=== PATIENT | male | born 1990 | race American Indian/Alaskan Native ===

== ENCOUNTER 2024-09-16 13:35 | Inpatient (IN) | payer OTHER ==
[2024-09-16] MEDS ORDERED: Sodium Chloride 0.9% 10 ML Syringe FLUSH PRN (14:09)
[2024-09-16 14:14] LABS: BASOPHILS ABSOLUTE AUTO 0.0 K/mm3 (0.0-0.2); BASOPHILS PERCENT AUTO 0.2 % (0.0-1.0); EOSINOPHILS ABSOLUTE AUTO 0.0 K/mm3 (0.0-0.4); EOSINOPHILS PERCENT AUTO 0.1 % (0.0-6.0); IMMATURE GRAN ABSOLUTE AUTO 0.03 K/mm3 (0.00-0.05); IMMATURE GRAN PERCENT AUTO 0.2 % (0.0-0.4); LYMPHOCYTES ABSOLUTE AUTO 0.9 K/mm3 (1.0-4.8); LYMPHOCYTES PERCENT AUTO 7.3 % (24.0-44.0); MEAN PLATELET VOLUME 10.0 fl (9.4-12.4); MONOCYTES ABSOLUTE AUTO 0.5 K/mm3 (0.0-0.8); MONOCYTES PERCENT AUTO 4.3 % (0.0-8.0); NEUTROPHILS ABSOLUTE AUTO 11.0 K/mm3 (1.8-7.7); NEUTROPHILS PERCENT AUTO 87.9 % (41.0-71.0); NRBC ABSOLUTE 0.00 (0.00-0.02); NRBC PERCENT 0.0 % (0.0-0.2); PLATELET COUNT,PLT 260 K/mm3 (150-400); RED BLOOD CELL COUNT 5.72 M/mm3 (4.52-5.90); WHITE BLOOD CELL COUNT,WBC 12.46 K/mm3 (3.9-11.3)
[2024-09-16] MEDS: Iopamidol 612 MG/ML 100 ML Bottle IVPUSH ONE (14:19)
[2024-09-16] MEDS: Sodium Chloride 0.9% 10 ML Syringe FLUSH PRN (14:19)
[2024-09-16 14:26] LABS: A/G RATIO 0.9 (1-2); ALANINE AMINOTRANSFERASE,ALT 45.0 U/L (16-63); ASPARTATE AMNIOTRANSFERASE,AST 28.0 U/L (15-37); BILIRUBIN TOTAL 2.8 mg/dL (0.2-1.0); BLOOD UREA NITROGEN,BUN 18.0 mg/dL (7-18); CARBON DIOXIDE,CO2 20.0 mEq/L (21-32); CHLORIDE,CL 93.0 mEq/L (98-107); CREATININE 0.9 mg/dL (0.7-1.3); EST CRCL DRUG DOSING (CG) 121.67 mL/min; ESTIMATED GFR 116.0 mL/min (>60); GLUCOSE RANDOM 266.0 mg/dL (70-99); POTASSIUM,K 3.2 mEq/L (3.5-5.1); PROTEIN TOTAL,TP 8.2 g/dl (6.4-8.2); SODIUM,NA 133.0 mEq/L (136-145)
[2024-09-16] MEDS: Ondansetron 4 MG/2 ML SDV IVPUSH ONE ×2 (14:42→16:00)
[2024-09-16] MEDS: Dicyclomine 20 MG/2 ML SDV IM ONE (16:52)
[2024-09-16] MEDS: Insulin Glargine,Human Rec. Analog 100 Units/ML 3 ML Pen SUBCUT STA (16:54)
[2024-09-16] MEDS: Insulin Lispro 100 Unit/ML 3 ML KwikPen SUBCUT SCH (17:47)
[2024-09-16] MEDS ORDERED: hydrALAZINE 20 MG/ML SDV IVPUSH PRN (18:01)
[2024-09-16 18:30] LABS: APPEARANCE,URINE CLEAR (Clear); GLUCOSE,URINE 2+ (Negative); OCCULT BLOOD,URINE TRACE-INTACT (Negative)
[2024-09-16 18:53] LABS: BUPRENORPHINE SCREEN,URINE NEGATIVE (CUTOFF=10); EPITHELIAL CELLS,URINE 0-5 /hpf (0-5); METHADONE SCREEN, URINE NEGATIVE (CUT0FF=200); METHAMPHETAMINES SCREEN, URINE NEGATIVE (CUTOFF=500); OXYCODONE SCREEN,URINE NEGATIVE (CUT0FF=100); THC SCREEN,URINE 20 NG/ML PRESUMPTIVE POSITIVE (CUTOFF=50)
[2024-09-16 18:55] LABS: AMPHETAMINES SCREEN, URINE NEGATIVE (CUTOFF=500)
[2024-09-16] MEDS: Ondansetron 4 MG/2 ML SDV IVPUSH PRN (22:29)
[2024-09-17 06:27] LABS: MEAN PLATELET VOLUME 9.8 fl (9.4-12.4); NRBC ABSOLUTE 0.00 (0.00-0.02); NRBC PERCENT 0.0 % (0.0-0.2); PLATELET COUNT,PLT 199 K/mm3 (150-400); RED BLOOD CELL COUNT 5.13 M/mm3 (4.52-5.90); WHITE BLOOD CELL COUNT,WBC 10.54 K/mm3 (3.9-11.3)
[2024-09-17 06:35] LABS: A/G RATIO 0.9 (1-2); ALANINE AMINOTRANSFERASE,ALT 36.0 U/L (16-63); ASPARTATE AMNIOTRANSFERASE,AST 24.0 U/L (15-37); BILIRUBIN TOTAL 1.8 mg/dL (0.2-1.0); BLOOD UREA NITROGEN,BUN 10.0 mg/dL (7-18); CARBON DIOXIDE,CO2 27.0 mEq/L (21-32); CHLORIDE,CL 96.0 mEq/L (98-107); CREATININE 0.6 mg/dL (0.7-1.3); EST CRCL DRUG DOSING (CG) 182.5 mL/min; ESTIMATED GFR 132.0 mL/min (>60); GLUCOSE RANDOM 157.0 mg/dL (70-99); POTASSIUM,K 3.0 mEq/L (3.5-5.1); PROTEIN TOTAL,TP 6.9 g/dl (6.4-8.2); SODIUM,NA 134.0 mEq/L (136-145)
[2024-09-17] MEDS: Magnesium Sulfate 2 GM/50 mL 2 GM in Premix Bag 1 BAG IV ONE (08:08)
[2024-09-17] MEDS: Potassium Chloride 20 MEQ Tab.ER PO ONE ×2 (08:13→21:20)
[2024-09-17] MEDS: Insulin Glargine,Human Rec. Analog 100 Units/ML 3 ML Pen SUBCUT SCH (08:14)
[2024-09-17] MEDS: fentaNYL 100 MCG/2 ML SDV IVPUSH PRN (19:02)
[2024-09-18 05:46] LABS: A/G RATIO 0.9 (1-2); ALANINE AMINOTRANSFERASE,ALT 53.0 U/L (16-63); ASPARTATE AMNIOTRANSFERASE,AST 44.0 U/L (15-37); BILIRUBIN TOTAL 2.2 mg/dL (0.2-1.0); BLOOD UREA NITROGEN,BUN 10.0 mg/dL (7-18); CARBON DIOXIDE,CO2 24.0 mEq/L (21-32); CHLORIDE,CL 96.0 mEq/L (98-107); CREATININE 0.7 mg/dL (0.7-1.3); EST CRCL DRUG DOSING (CG) 156.43 mL/min; ESTIMATED GFR 126.0 mL/min (>60); GLUCOSE RANDOM 136.0 mg/dL (70-99); POTASSIUM,K 3.6 mEq/L (3.5-5.1); PROTEIN TOTAL,TP 7.1 g/dl (6.4-8.2); SODIUM,NA 132.0 mEq/L (136-145)
[2024-09-18] MEDS ORDERED: hydrALAZINE 20 MG/ML SDV IVPUSH PRN (07:56)
[2024-09-18] MEDS ORDERED: Labetalol 100 MG/20 ML MDV IVPUSH PRN (07:56)
[2024-09-18] MEDS ORDERED: LORazepam 2 MG/ML SDV IVPUSH PRN (08:14)
[2024-09-18] MEDS: Cyanocobalamin (Vitamin B12) 1,000 MCG Tab PO SCH (08:26)
[2024-09-18] MEDS: Potassium Phosphates 30 MMOLE in Sodium Chloride 0.9% 500 ML IV ONE (08:50)
[2024-09-19 06:22] LABS: A/G RATIO 0.9 (1-2); ALANINE AMINOTRANSFERASE,ALT 76.0 U/L (16-63); ASPARTATE AMNIOTRANSFERASE,AST 60.0 U/L (15-37); BILIRUBIN TOTAL 2.1 mg/dL (0.2-1.0); BLOOD UREA NITROGEN,BUN 12.0 mg/dL (7-18); CARBON DIOXIDE,CO2 23.0 mEq/L (21-32); CHLORIDE,CL 97.0 mEq/L (98-107); CREATININE 0.7 mg/dL (0.7-1.3); EST CRCL DRUG DOSING (CG) 156.43 mL/min; ESTIMATED GFR 126.0 mL/min (>60); GLUCOSE RANDOM 161.0 mg/dL (70-99); PHOSPHORUS 3.7 mg/dL (2.6-4.7); POTASSIUM,K 3.5 mEq/L (3.5-5.1); PROTEIN TOTAL,TP 6.9 g/dl (6.4-8.2); SODIUM,NA 131.0 mEq/L (136-145)
[2024-09-19 06:25] LABS: FOLIC ACID 19.7 ng/mL (8.6-58.9)
[2024-09-19 06:59] LABS: VITAMIN D,25-HYDROXY 10.2 ng/ml (30.0-100.0)
[2024-09-19] MEDS: Sennosides/Docusate Sodium 50-8.6 MG Tab PO PRN (07:59)
== END 2024-09-19 12:42 | disposition home or self-care (01) | DRG 638 ==
LOC: JD.ED 13:35 → JD.MS 16:44
PROVIDERS: ADMIT Internal Medicine; ATTEND Internal Medicine
DX: E11.00 Type 2 diabetes mellitus with hyperosmolarity without nonketotic hyperglycemic-hyperosmolar coma (NKHHC) (principal); E87.29 Other acidosis; Q43.3 Congenital malformations of intestinal fixation; I10 Essential (primary) hypertension; L98.499 Non-pressure chronic ulcer of skin of other sites with unspecified severity; E11.65 Type 2 diabetes mellitus with hyperglycemia; R11.2 Nausea with vomiting, unspecified; E11.69 Type 2 diabetes mellitus with other specified complication; T38.3X5A Adverse effect of insulin and oral hypoglycemic [antidiabetic] drugs, initial encounter; E11.622 Type 2 diabetes mellitus with other skin ulcer; F10.90 Alcohol use, unspecified, uncomplicated; F12.90 Cannabis use, unspecified, uncomplicated; E87.6 Hypokalemia; D72.829 Elevated white blood cell count, unspecified; E86.0 Dehydration; E78.5 Hyperlipidemia, unspecified; K76.0 Fatty (change of) liver, not elsewhere classified; R93.5 Abnormal findings on diagnostic imaging of other abdominal regions, including retroperitoneum; E83.42 Hypomagnesemia; Z79.4 Long term (current) use of insulin; Z79.84 Long term (current) use of oral hypoglycemic drugs; Z79.899 Other long term (current) drug therapy
CPT/HCPCS: 36415; 74177; 74177-26; 80053; 80306; 81001; 82306; 82607; 82746; 82947; 83036; 83690; 83735; 84100; 84425; 85025; 85027; 86140; 96361; 96374; 96375; 96376; 97161-GP; 97530-GP; 99223; 99232; 99239; 99285; 99285-25; A9270-GY; J0500; J0696; J1308; J1650; J1815-GY; J2405; J2470; J2765; J3010; J3475; J3480; J3490; J7030; J7040; Q9967